=== PATIENT | female | born 1960 | race American Indian/Alaskan Native ===

== ENCOUNTER 2018-02-01 06:07 | Emergency (ER) | payer MEDICAID, OTHER ==
[2018-02-01 06:08] VITALS: BMI 19.3
--- NOTE | 2018-02-01 07:34 | C.PDOC ---
History Of Present Illness 57 years old -[place] female with history or schizoaffectidisorder and opioid use disorder, presents to ER requesting detox from heroin. She reports last use was 2 days ago. She is also asking for hot breakfast. Denies any alcohol use or physical complaints Time Seen by Provider: 02/01/18 07:05 Chief Complaint (Nursing): Substance Abuse History Per: Patient History/Exam Limitations: no limitations Past Medical History Reviewed: Historical Data, Nursing Documentation, Vital Signs Vital Signs: Last Vital Signs Temp 99.6 F 02/01/18 12:21 Pulse 114 H 02/01/18 12:21 Resp 18 02/01/18 12:21 BP 116/76 02/01/18 12:21 Pulse Ox 97 02/01/18 12:34 - Medical History PMH: Anxiety, Asthma, Bipolar Disorder, COPD (RECENTLY INTUBATED), Depression, Hepatitis (C), Schizophrenia - [facility] Procedures DETOXIFICATION SERVICES FOR SUBSTANCE ABUSE TREATMENT (05/01/16) GROUP PAINT ROLLER COVERMAKER FOR SUBSTANCE ABUSE TREATMENT, PSYCHOEDUCATION (05/01/16) INTRODUCE OF OTH THERAP SUBST INTO RESP TRACT, VIA OPENING (01/15/18) MEDICATION MANAGEMENT (01/15/18) PERCUTAN NEEDLE BX OF LIVER (07/03/14) Family History: States: No Known Family Hx - Social History Hx Tobacco Use: Yes Hx Alcohol Use: No Hx Substance Use: Yes - Immunization History Hx Tetanus Toxoid Vaccination: No Hx Influenza Vaccination: No Hx Pneumococcal Vaccination: No Review Of Systems Constitutional: Negative for: Fever Cardiovascular: Negative for: Chest Pain Gastrointestinal: Negative for: Vomiting Psych: Negative for: Suicidal ideation, Withdrawal Physical Exam - Physical Exam Appears: Non-toxic, No Acute Distress, Other (elderly appearing, thin habitus) Skin: Warm, Dry, No Rash Head: Normacephalic Eye(s): bilateral: PERRL Nose: Normal Neck: Normal ROM Extremity: Normal ROM, No Deformity, No Swelling Neurological/Psych: Oriented x3, Normal Speech ED Course And Treatment O2 Sat by Pulse Oximetry: 97 (RA) Pulse Ox Interpretation: Normal Medical Decision Making Medical Decision Making: Spoke with crisis and there are no beds available for detox Patient then was complaining her body hurts and still asking for food. Tylenol was given and patient fed. Patient is tachycardic. EKG shows Sinus Tach at 124 bpm. Case discussed with DR Keith. Recommends IV fluids and observation. Attempt another call to detox unit and still no beds available Patient given additional fluids and observed in ED for over 6 hours. She remained in no acute distress. She would ask for food and beverage. Patient ambulatory to rest room without any discomfort. No signs of hemodynamic instability. She is stable for discharge. Disposition Counseled Patient/Family Regarding: Diagnosis, Need For Followup - Disposition Disposition: HOME/ ROUTINE Disposition Time: 13:00 Condition: STABLE Additional Instructions: Please call [phone] or [phone] to inquire about our Detox availability , may speak to coordinator Mariana Instructions: Opioid Use Disorder Forms: [employer] (Belarusian) - POA Present On Arrival: None - Clinical Impression Clinical Impression: Schizoaffective disorder, Opioid use disorder, mild, abuse - Scribe Statement The provider has reviewed the documentation as recorded by the Scribe (Lauryn Galindo) All medical record entries made by the Scribe were at my direction and personally dictated by me. I have reviewed the chart and agree that the record accurately reflects my personal performance of the history, physical exam, medical decision making, and the department course for this patient. I have also personally directed, reviewed, and agree with the discharge instructions and disposition.
[2018-02-01 08:18] VITALS: RESP 18
[2018-02-01] MEDS ORDERED: Sodium Chloride 0.9% 1,000 ML IV ONE ×2 (09:09→11:23)
[2018-02-01] MEDS ORDERED: Sodium Chloride 0.9% 1,000 ML ONE (09:37)
[2018-02-01 12:22] VITALS: BP 116/76; PULSE 114; TEMP 99.6
[2018-02-01 12:34] VITALS: O2SAT 97
--- NOTE | 2018-02-02 15:27 | CARD ---
APPROVED REPORT EKG Measurement Heart [id number] <Conclusion> Sinus tachycardia Moderate voltage criteria for LVH, may be normal variant Borderline ECG
== END 2018-02-01 13:14 | disposition home or self-care (01) ==
LOC: C.ER 06:07
DX: F25.9 Schizoaffective disorder, unspecified (principal); F11.10 Opioid abuse, uncomplicated
CPT/HCPCS: 93005; 96360; 99284; J7040

== ENCOUNTER 2018-02-06 20:13 | Emergency (ER) | payer MEDICAID, OTHER ==
[2018-02-06 20:13] VITALS: BMI 19.3
--- NOTE | 2018-02-06 21:30 | C.PDOC ---
History Of Present Illness 57 y/o undomiciled female presents to the ED for EtOH intoxication. Patient brought herself into ED complaining of leg pain. She was seen at [facility] on 02/03/18 for substance abuse. PMD: none provided Time Seen by Provider: 02/06/18 21:24 Chief Complaint (Nursing): Lower Extremity Problem/Injury History Per: Patient History/Exam Limitations: intoxication Onset/Duration Of Symptoms: Hrs Current Symptoms Are (Timing): Still Present Modifying Factor(s): Alcohol Recent travel outside of the [place]: No Past Medical History Vital Signs: Last Vital Signs Temp 98.0 F 02/06/18 21:45 Pulse 88 02/06/18 21:45 Resp 14 02/06/18 21:45 BP 109/69 02/06/18 21:45 Pulse Ox 95 02/06/18 21:45 - Medical History PMH: Anxiety, Asthma, Bipolar Disorder, COPD (RECENTLY INTUBATED), Depression, Hepatitis (C), Schizophrenia Denies: Diabetes, HIV, HTN, Chronic Kidney Disease, Seizures, Sexually Transmitted Disease Surgical History: No Surg Hx - [facility] Procedures DETOXIFICATION SERVICES FOR SUBSTANCE ABUSE TREATMENT (05/01/16) GROUP CABLE TELEVISION INSTALLER FOR SUBSTANCE ABUSE TREATMENT, PSYCHOEDUCATION (05/01/16) INTRODUCE OF OTH THERAP SUBST INTO RESP TRACT, VIA OPENING (01/15/18) MEDICATION MANAGEMENT (01/15/18) PERCUTAN NEEDLE BX OF LIVER (07/03/14) Family History: States: Unknown Family Hx - Social History Hx Tobacco Use: Yes Hx Alcohol Use: No Hx Substance Use: Yes (heroin) - Immunization History Hx Tetanus Toxoid Vaccination: No Hx Influenza Vaccination: No Hx Pneumococcal Vaccination: No Review Of Systems Except As Marked, All Systems Reviewed And Found Negative. Constitutional: Positive for: Other (EtOH intoxication) Musculoskeletal: Positive for: Leg Pain Physical Exam - Physical Exam Appears: No Acute Distress, Other (argumentative) Skin: Normal Color, Warm, Dry Head: Atraumatic, Normacephalic Eye(s): bilateral: Other (pinpoint pupils) Nose: Normal Throat: Normal Neck: Normal Cardiovascular: Rhythm Regular, No Murmur Respiratory: Normal Breath Sounds, No Decreased Breath Sounds Gastrointestinal/Abdominal: Normal Exam Back: Normal Inspection, No CVA Tenderness, No Vertebral Tenderness Extremity: Normal ROM, Pedal Edema (mild bilateral lower extremity pedal edema) Neurological/Psych: Oriented x3 ED Course And Treatment O2 Sat by Pulse Oximetry: 97 (RA) Pulse Ox Interpretation: Normal Medical Decision Making Medical Decision Making: persistent polysubstance abuse earily arousable, argumentative, confrontational no acute issues similar presentation @ [facility] ED 3 days ago, tox+ cocaine, THC, opiates, suspect same Disposition Doctor Will See Patient In The: Office Counseled Patient/Family Regarding: Studies Performed, Diagnosis - Disposition Referrals: [facility] [Outside] [facility] [Outside] [facility] [Outside] [place] [email or web address] [Outside] Disposition: HOME/ ROUTINE Disposition Time: 21:29 Condition: GOOD Additional Instructions: continue to seek outpatient resources for your substance abuse and psych issues. Seek nightly [facility] placement. Instructions: Drug Abuse and Drug Addiction (DC), Drug Abuse Treatment, Opioid Use Disorder, Weaning Patients Off of Pain Drugs Forms: [facility] (Papua [place]inean) - Clinical Impression Clinical Impression: Polysubstance (including opioids) dependence with physiol dependence
[2018-02-06 21:49] VITALS: BP 109/69; PULSE 88; RESP 14; TEMP 98
[2018-02-06 22:48] VITALS: O2SAT 97
== END 2018-02-06 21:40 | disposition home or self-care (01) ==
LOC: C.ER 20:13
DX: F11.20 Opioid dependence, uncomplicated (principal)

== ENCOUNTER 2018-02-09 00:42 | Emergency (ER) | payer OTHER ==
[2018-02-09 00:42] VITALS: BMI 19.3
[2018-02-09 01:00] VITALS: BP 101/63; PULSE 101; RESP 20; TEMP 98.1; O2SAT 98
--- NOTE | 2018-02-09 01:19 | C.PDOC ---
History Of Present Illness 57 y/o female with a history of heroin abuse presents to the ED for request of detox. Patient admits to insufflating heroin today with no other complaints. PMD: none provided Time Seen by Provider: 02/09/18 01:08 Chief Complaint (Nursing): Substance Abuse History Per: Patient History/Exam Limitations: intoxication Onset/Duration Of Symptoms: Hrs Current Symptoms Are (Timing): Still Present Modifying Factor(s): Alcohol, Narcotics Recent travel outside of the [place]: No Past Medical History Reviewed: Historical Data, Nursing Documentation, Vital Signs Vital Signs: Last Vital Signs Temp 98.1 F 02/09/18 00:47 Pulse 101 H 02/09/18 00:47 Resp 20 02/09/18 00:47 BP 101/63 02/09/18 00:47 Pulse Ox 98 02/09/18 04:27 - Medical History PMH: Anxiety, Asthma, Bipolar Disorder, COPD (RECENTLY INTUBATED), Depression, Hepatitis (C), Schizophrenia Denies: Diabetes, HIV, HTN, Chronic Kidney Disease, Seizures, Sexually Transmitted Disease Surgical History: No Surg Hx - [facility] Procedures DETOXIFICATION SERVICES FOR SUBSTANCE ABUSE TREATMENT (05/01/16) GROUP CHECKER DUMP GROUNDS FOR SUBSTANCE ABUSE TREATMENT, PSYCHOEDUCATION (05/01/16) INTRODUCE OF OTH THERAP SUBST INTO RESP TRACT, VIA OPENING (01/15/18) MEDICATION MANAGEMENT (01/15/18) PERCUTAN NEEDLE BX OF LIVER (07/03/14) Family History: States: Unknown Family Hx - Social History Hx Tobacco Use: Yes Hx Alcohol Use: No Hx Substance Use: Yes (heroin) - Immunization History Hx Tetanus Toxoid Vaccination: No Hx Influenza Vaccination: No Hx Pneumococcal Vaccination: No Review Of Systems Except As Marked, All Systems Reviewed And Found Negative. Constitutional: Positive for: Other (EtOH intoxication and heroin usage, has no other complaints) Physical Exam - Physical Exam Appears: Well, No Acute Distress, Other (poor overall hygiene) Skin: Normal Color, Warm, Dry, Other (no peripheral stigmata of IV drug use) Head: Atraumatic Eye(s): bilateral: EOMI, Abnormal Pupil (pin point pupils) Nose: Normal Throat: Normal Neck: Normal, Supple Cardiovascular: Rhythm Regular (S1 & S2 normal), No Murmur Respiratory: Normal Breath Sounds (lungs are clear to auscultation bilaterally) Gastrointestinal/Abdominal: Normal Exam, Soft, No Tenderness Back: Normal Inspection, No CVA Tenderness, No Vertebral Tenderness, No Other ( no stenosis) Extremity: Normal ROM, No Other (no clubbing) Pulses: Left Radial: Normal (2+), Right Radial: Normal (2+) Neurological/Psych: Oriented x3, No No Response To Commands (responds to verbal stimuli), Other (appears to be under the influence of narcotics and lethargic, non-focal) ED Course And Treatment - Laboratory Results Result Diagrams: 02/09/18 02:05 02/09/18 02:05 O2 Sat by Pulse Oximetry: 98 (RA) Pulse Ox Interpretation: Normal Medical Decision Making Medical Decision Making: Impression: Substance and opioid abuse. Notify crisis of detox interest. Initial Plan: * Drug Screen * Urinalysis Alcohol was found to be 185. Scribe Attestation: Documented by Petros Guerra acting as a scribe Nima Osorio MD. Scribe Attestation: All medical record entries made by the Scribe were at my direction and personally dictated by me. I have reviewed the chart and agree that the record accurately reflects my personal performance of the history, physical exam, medical decision making, and the department course for this patient. I have also personally directed, reviewed, and agree with the discharge instructions and disposition. Disposition - Disposition Referrals: [facility] [Outside] Disposition: HOME/ ROUTINE Disposition Time: 08:41 Condition: GUARDED Additional Instructions: Pt given list of outpt programs.No female beds available for detox admission Instructions: Polysubstance Abuse Forms: [email or web address] (Indonesian) Print Language: PERSIAN - Clinical Impression Clinical Impression: Polysubstance abuse
[2018-02-09 02:24] LABS: ALB/GLOB RATIO 0.8 (1.0-2.1); ALBUMIN 3.4 g/dL (3.5-5.0); ALT/SGPT 106 U/L (9-52); AST/SGOT 153 U/L (14-36); BLOOD UREA NITROGEN 6 mg/dL (7-17); CALCIUM 9.1 mg/dl (8.6-10.4); GFR AFRICAN-AMERICAN > 60; GFR NON-AFRICAN AMERICAN > 60
[2018-02-09 02:27] LABS: BASO # 0.1 K/uL (0.0-0.2); BASO % 0.8 % (0.0-2.0); EOS # 0.3 K/uL (0.0-0.7); EOS % 3.3 % (0.0-4.0); HEMOGLOBIN 12.9 g/dL (11.0-16.0); LYMPH # 3.3 K/uL (1.0-4.3); MEAN CORPUSCULAR HEMOGLOBIN 31.3 pg (27.0-31.0); MEAN PLATELET VOLUME 8.3 fL (7.2-11.7); MONO # 0.8 K/uL (0.0-0.8); MONO % 9.6 % (0.0-10.0); NEUT # 4.3 K/uL (1.8-7.0); NEUT % 48.3 % (50.0-75.0); NRBC % 0.2 % (0.0-2.0); RBC 4.12 Mil/uL (3.80-5.20); RED CELL DISTRIBUTION WIDTH 15.2 % (11.5-14.5); WHITE BLOOD COUNT 8.8 K/uL (4.8-10.8)
== END 2018-02-09 09:36 | disposition home or self-care (01) ==
LOC: C.ER 00:42
DX: F19.10 Other psychoactive substance abuse, uncomplicated (principal)

== ENCOUNTER 2018-02-17 14:41 | Inpatient (IN) | payer MEDICAID, OTHER ==
[2018-02-17 14:41] VITALS: BMI 19.3
[2018-02-17 16:15] LABS: BASO % 0.5 % (0.0-2.0); EOS # 0.4 K/uL (0.0-0.7); EOS % 5.7 % (0.0-4.0); HEMOGLOBIN 13.3 g/dL (11.0-16.0); LYMPH # 3.8 K/uL (1.0-4.3); LYMPH % 50.7 % (20.0-40.0); MEAN CELL VOLUME 88.2 fL (81.0-99.0); MEAN CORPUSCULAR HEMOGLOBIN 31.2 pg (27.0-31.0); MEAN CORPUSCULAR HGB CONC 35.4 g/dL (33.0-37.0); MEAN PLATELET VOLUME 8.5 fL (7.2-11.7); MONO # 0.9 K/uL (0.0-0.8); MONO % 11.8 % (0.0-10.0); NEUT # 2.3 K/uL (1.8-7.0); NEUT % 31.3 % (50.0-75.0); NRBC % 0.1 % (0.0-2.0); RBC 4.25 Mil/uL (3.80-5.20); RED CELL DISTRIBUTION WIDTH 15.1 % (11.5-14.5); WHITE BLOOD COUNT 7.4 K/uL (4.8-10.8)
[2018-02-17 16:30] LABS: ALB/GLOB RATIO 0.6 (1.0-2.1); ALBUMIN 3.8 g/dL (3.5-5.0); ALT/SGPT 200 U/L (9-52); AST/SGOT 289 U/L (14-36); BLOOD UREA NITROGEN 14 mg/dL (7-17); CALCIUM 9.5 mg/dl (8.6-10.4); GFR AFRICAN-AMERICAN > 60; GFR NON-AFRICAN AMERICAN > 60
[2018-02-17 18:27] LABS: BARBITURATES, UR NEGATIVE (NEGATIVE); BENZODIAZEPINES, UR NEGATIVE (NEGATIVE); PHENCYCLIDINE, UR NEGATIVE (NEGATIVE)
--- NOTE | 2018-02-17 18:34 | C.PDOC ---
History Of Present Illness 57-year-old female, presents to the emergency department, prescreened for detox from Heroin. Patient states she last used Heroin IV this morning. Denies any other substance use. no SI/HI. Time Seen by Provider: 02/17/18 15:13 Chief Complaint (Nursing): Substance Abuse History Per: Patient Current Symptoms Are (Timing): Still Present Past Medical History Reviewed: Historical Data, Nursing Documentation, Vital Signs Vital Signs: Last Vital Signs Temp 98.7 F 02/17/18 18:15 Pulse 90 02/17/18 18:15 Resp 18 02/17/18 18:15 BP 118/75 02/17/18 18:15 Pulse Ox 97 02/17/18 18:38 - Medical History PMH: Anxiety, Asthma, Bipolar Disorder, COPD, Depression, Hepatitis (Hep C), Schizophrenia - [facility] Procedures DETOXIFICATION SERVICES FOR SUBSTANCE ABUSE TREATMENT (05/01/16) GROUP INJECTION MACHINE OPERATOR FOR SUBSTANCE ABUSE TREATMENT, PSYCHOEDUCATION (05/01/16) INTRODUCE OF OTH THERAP SUBST INTO RESP TRACT, VIA OPENING (01/15/18) MEDICATION MANAGEMENT (01/15/18) PERCUTAN NEEDLE BX OF LIVER (07/03/14) Family History: States: No Known Family Hx - Social History Hx Tobacco Use: Yes Hx Alcohol Use: No Hx Substance Use: Yes - Immunization History Hx Tetanus Toxoid Vaccination: No Hx Influenza Vaccination: No Hx Pneumococcal Vaccination: No Review Of Systems Except As Marked, All Systems Reviewed And Found Negative. Constitutional: Negative for: Fever, Chills Cardiovascular: Negative for: Chest Pain, Palpitations Respiratory: Negative for: Shortness of Breath Gastrointestinal: Negative for: Vomiting Skin: Negative for: Rash Neurological: Negative for: Weakness, Numbness, Headache, Dizziness Psych: Negative for: Suicidal ideation, Withdrawal Physical Exam - Physical Exam Appears: Non-toxic, No Acute Distress Skin: Normal Color, Warm, Dry, No Rash Head: Normacephalic Eye(s): bilateral: PERRL Nose: Normal Oral Mucosa: Moist Lips: Normal Appearing Neck: Normal ROM Chest: Symmetrical Cardiovascular: Rhythm Regular, No Murmur Respiratory: Normal Breath Sounds, No Accessory Muscle Use Gastrointestinal/Abdominal: Soft, No Tenderness Extremity: Normal ROM, No Deformity, No Swelling Neurological/Psych: Oriented x3, Normal Speech ED Course And Treatment - Laboratory Results Result Diagrams: 02/17/18 16:10 02/17/18 16:10 O2 Sat by Pulse Oximetry: 97 (RA) Pulse Ox Interpretation: Normal Progress Note: Patient medically cleared and stable for Detox. Patient has s/s of UTI and needs to continue Macrobid 100 mg po q 12 h for 5 days. Disposition - Disposition Disposition: HOSPITALIZED Disposition Time: 18:59 Condition: STABLE Forms: [facility] (Macedonian) - Clinical Impression Clinical Impression: Opiate dependence, UTI (urinary tract infection) - Scribe Statement The provider has reviewed the documentation as recorded by the Scribe (Lauryn Galindo) All medical record entries made by the Scribe were at my direction and personally dictated by me. I have reviewed the chart and agree that the record accurately reflects my personal performance of the history, physical exam, medical decision making, and the department course for this patient. I have also personally directed, reviewed, and agree with the discharge instructions and disposition.
[2018-02-17 18:36] LABS: SQUAMOUS EPITHIAL 2 /hpf (0-5); URINE BACTERIA MOD (<OCC); URINE BILIRUBIN NEGATIVE (NEGATIVE); URINE BLOOD 1+ (NEGATIVE); URINE CALCIUM OXALATE CRYSTALS FEW /hpf (<OCC); URINE CLARITY Hazy (Clear); URINE COLOR Amber (YELLOW); URINE GLUCOSE (UA) 2+ mg/dL (Normal); URINE LEUKOCYTE ESTERASE 3+ Leu/uL (Negative); URINE PROTEIN 1+ mg/dL (NEGATIVE)
[2018-02-17 18:50] LABS: OPIATES, UR POSITIVE (NEGATIVE)
--- NOTE | 2018-02-17 19:18 | PCM.BM ---
<Leeroy Piedra - Last Filed: 02/17/18 19:17> Treatment Plan Problems - Problems identified on initial assessmt potential for opiate withdrawal Date Initiated: 02/17/18 Time Initiated: 19:18 Status: Active Treatment assets and liabiliti Patient Assests: cooperative, ADL independent, negotiates basic needs, cognitively intact Patient Liabilities: substance abuse, medical problems - Milieu Protocol Maintain good personal hygiene: daily Encourage regular showers, daily Remind patient to perform daily oral care, daily Assist patient to perform ADL's Conduct patient checks and document Observation sheet: Q15 minutes Maintain personal safety: every shift Educate patient to report safety concerns to staff, every shift Monitor environment for contraband/sharps Medication safety: Monitor for expected outcome, potential side effects: every shift, Assess barriers to learning: every shift, Assess readiness for medication education: every shift <Oliva Treadwell - Last Filed: 02/20/18 10:15> - Diagnosis (1) Opiate dependence Status: Acute Interventions: 02/20/18 10:14 * Assess 7x/week regarding severity of withdrawal * Educate regarding risks, benefits, side effects and alternatives of medications * Use Motivational Interviewing for abstinence * Use CBT for relapse prevention * Medication management for withdrawal symptoms * Encourage medication assisted treatment *
[2018-02-17] MEDS ORDERED: Aluminum Hydroxide/Magnesium Hydroxide Susp (30 mL) PO PRN ×2 (19:31→19:38)
--- NOTE | 2018-02-18 13:11 | PCM.PSYCH ---
Initial Psychiatric Evaluation - Initial Psychiatric Evaluation Type of Admission: Voluntary Legal Status: Capacity Chief Complaint (in patient's own words): "I need detox" History of Present Illness and Precipitating Events: The patient is seen, chart reviewed and case discussed. This is a 57-year-old -Trist[place] female, single with 2 adult children, she is on disability because of schizoaffective disorder. The patient is here for heroin detox; using 20 bags IV since age 36. She denies all other drugs but she uses cigarettes 2 packs per day. She has been to detox 4 times in the past but no detox. She was on methadone 2 years ago up to 60 mg. Past psych history: She had been hospitalized for schizoaffective disorder for more than 10 times, last one was earlier this year in [place], however, she currently denies any psychiatric symptoms except for sleep problems. She is not suicidal, homicidal and no hallucinations or delusions elicited. Her mood is low a little bit but she attributes it to he drug use. Past medical history: Hepatitis C and asthma Family psych history: Her sister committed suicide. Current Medications: Active Medications Generic Name Dose Route Start Last Admin Trade Name Freq PRN Reason Stop Dose Admin Al Hydrox/Mg Hydrox/Simethicone 30 ml 02/17/18 19:31 Maalox 30 Ml PO TID PRN Indigestion / Heartburn Clonidine HCl 0.1 mg 02/17/18 19:31 Catapres PO Q8 PRN COWS Score More or Equal to 5 Hydroxyzine HCl 25 mg 02/17/18 19:31 Atarax PO Q6 PRN Agitation Loperamide HCl 2 mg 02/17/18 19:31 Imodium PO Q8 PRN Diarrhea Nicotine 1 patch 02/18/18 10:00 02/18/18 09:59 Nicoderm Cq TD 1 patch DAILY SHELLEY Administration Nitrofurantoin Macrocrystals 100 mg 02/18/18 10:00 02/18/18 10:09 Macrobid PO 100 mg Q12H SHELLEY Administration Protocol Ondansetron HCl 4 mg 02/17/18 19:38 Zofran Tab PO Q8 PRN Nausea/Vomiting Pseudoephedrine HCl 60 mg 02/17/18 19:31 Sudafed Tab PO QID PRN Nasal/Sinus Congestion Trazodone HCl 50 mg 02/17/18 22:00 02/17/18 21:18 Desyrel PO 50 mg HS SHELLEY Administration Past Psychiatric History - Past Psychiatric History Previous Treatment History: Inpatient Pertinent Medical Hx (Current Medical&Sleep Prob, Allergies): Allergies Allergy/AdvReac Type Severity Reaction Status Date / Time No Known Allergies Allergy Verified 02/17/18 15:14 No Known Home Med 02/17/18 Review of Systems - Psychiatric Psychiatric: Abnormal Sleep Pattern, Anxiety, Depression, Difficulty Concentrating, Irritability. absent: Hallucinations, Homicidal Ideation, Paranoia, Suicidal Ideation Mental Status Examination - Personal Presentation Personal Presentation: Looks older than stated age - Affect Affect: Constricted - Motor Activity Motor Activity: Calm - Reliability in Providing Information Reliability in Providing Information: Fair - Speech Speech: Organized - Mood Mood: Depressed, Anxious - Formal Thought Process Formal Thought Process: No Impairment - Cognitive Functions Orientation: Person, Place, Situation, Time Sensorium: Alert Attention/Concentration: Easily distracted Abstract Thinking: Lignum Estimate of Intelligence: Below average Judgement: Intact, as evidence by: Insight regarding need for hospitalization Memory: Recent intact, as evidence by: Ability to recall events of the day, Remote impaired as evidenced by: Inability to recall historical events - Risk Risk: Withdrawal, Diminished functioning - Strength & Assets Inventory Strength & Assets Inventory: Cooperative - Limitations Limitations: Other DSM 5 DX - DSM 5 DSM 5 Diagnosis: Opioid withdrawal Opioid use disorder, severe Tobacco use disorder, severe Schizoaffective disorder, depressed - Recommended/Plan of Treatment Treatment Recommendations and Plan of Treatment: Taper with methadone Seroquel for schizoaffective disorder and insomnia Gabapentin for augmentation if needed As needed medications All risks, benefits and alternatives of the meds discussed, and the pt agreed and understood. Attend groups and activities Supportive therapy and psychoeducation [place] for abstinence CBT for relapse prevention Encourage MAT Refer to rehab or IOP, and self-help groups Smoking cessation with [place] Nicotine patch 34 min Projected ELOS: 4-6 days Prognosis: Good with treatment - Smoking Cessation Smoking Cessation Initiated: Yes
[2018-02-18] MEDS ORDERED: Magnesium Hydroxide Susp 30 ml UD PO ONE (18:28)
[2018-02-18] MEDS ORDERED: Magnesium Hydroxide Susp 30 ml UD PO PRN (19:38)
--- NOTE | 2018-02-19 13:41 | PCM.PYCHPN ---
Psychiatric Progress Note - Psychiatric Progress Note Patient seen today, length of contact: 16 min Patient Chief Complaint: "I couldn't sleep well, still having some withdrawals" Problems Identified/Issues Discussed: The pt is seen, chart reviewed, case discussed with staff. Support given, CBT and [place] used briefly No new symptoms reported, improving slowly and needs more time No SEs from medications, risks discussed. After care discussed Medication Change: Yes (detox changes daily) Medical Record Reviewed: Yes Mental Status Examination - Cognitive Function Orientation: Person, Place, Situation, Time Memory: Impaired Attention: Poor Concentration: Poor Association: WNL Fund of Knowledge: Poor - Mood Mood: Depressed, Anxious - Affect Affect: Constricted - Speech Speech: Appropriate - Formal Thought Process Formal Thought Process: No Impairment - Suicidal Ideation Suicidal Ideation: No - Homicidal Ideation Homicidal Ideation: No Goal/Treatment Plan - Goal/Treatment Plan Need for Continued Stay: Discharge may exacerbated symptoms, Severe functional impairment Progress Toward Problem(s) and Goals/Treatment Plan: Taper with methadone Seroquel for schizoaffective disorder and insomnia Gabapentin for augmentation if needed As needed medications All risks, benefits and alternatives of the meds discussed, and the pt agreed and understood. Attend groups and activities Supportive therapy and psychoeducation [place] for abstinence CBT for relapse prevention Encourage MAT Refer to rehab or IOP, and self-help groups Smoking cessation with [place] Nicotine patch
--- NOTE | 2018-02-20 19:13 | PCM.PYCHPN ---
Psychiatric Progress Note - Psychiatric Progress Note Patient seen today, length of contact: 16 min Patient Chief Complaint: I'm fine Problems Identified/Issues Discussed: The pt is seen, chart reviewed, case discussed with staff. The pt is compliant with medications and reports no side-effects. Symptoms are improving but needs more time to stabilize. After care discussed, support and psychoeducation given. DSM 5 Symptoms Update: Opioid withdrawal Opioid use disorder, severe Tobacco use disorder, severe Schizoaffective disorder, depressed Medication Change: Yes (detox changes daily) Medical Record Reviewed: Yes Mental Status Examination - Cognitive Function Orientation: Person, Place, Situation, Time Memory: Impaired Attention: Poor Concentration: Poor Association: WNL Fund of Knowledge: Poor Decription of patient's judgement and insights: fair/fair Addtional comments: Cooperative - Mood Mood: Depressed, Anxious - Affect Affect: Constricted - Speech Speech: Appropriate - Formal Thought Process Formal Thought Process: No Impairment Psychotic Thoughts and Behaviors: denied - Suicidal Ideation Suicidal Ideation: No Plan: denied - Homicidal Ideation Homicidal Ideation: No Plan: denied Goal/Treatment Plan - Goal/Treatment Plan Need for Continued Stay: Discharge may exacerbated symptoms, Severe functional impairment Progress Toward Problem(s) and Goals/Treatment Plan: Methadone detox Gabapentin for augmentation As needed meds and vitamins Attend groups and activities [place] for abstinence and CBT for relapse prevention Support and psychoeducation Estimated Date of D/C: 02/22/18
--- NOTE | 2018-02-21 10:10 | RAD ---
HISTORY: Discharge instructions COMPARISON: Comparison is made with 07/03/2014 TECHNIQUE: Chest PA and lateral FINDINGS: LUNGS: No evidence of new infiltrate or consolidation in the lungs. [id number] hyperinflation of the lungs is again noted. There is linear opacity seen at the right lung base likely represent atelectasis. PLEURA: No significant pleural effusion identified. No pneumothorax apparent. CARDIOVASCULAR: Normal. OSSEOUS STRUCTURES: No significant abnormalities. VISUALIZED UPPER ABDOMEN: Normal. OTHER FINDINGS: None. IMPRESSION: Small linear opacity at the right lung base may represent atelectasis. Otherwise no significant interval change.
--- NOTE | 2018-02-21 16:24 | PCM.PYCHPN ---
Psychiatric Progress Note - Psychiatric Progress Note Patient seen today, length of contact: 16 min Patient Chief Complaint: I'm getting better Problems Identified/Issues Discussed: The pt is seen, chart reviewed, case discussed with staff.Pt stated that she is getting better with the meds. The pt is compliant with medications and reports no side-effects. Symptoms are improving but needs more time to stabilize. After care discussed, support and psychoeducation given. DSM 5 Symptoms Update: Opioid dependence, severe Opioid withdrawal Medication Change: Yes (detox changes daily) Medical Record Reviewed: Yes Mental Status Examination - Cognitive Function Orientation: Person, Place, Situation, Time Memory: Impaired Attention: Poor Concentration: Poor Association: WNL Fund of Knowledge: Poor Decription of patient's judgement and insights: fair/fair Addtional comments: Cooperative - Mood Mood: Depressed, Anxious - Affect Affect: Constricted - Speech Speech: Appropriate - Formal Thought Process Formal Thought Process: No Impairment Psychotic Thoughts and Behaviors: denied - Suicidal Ideation Suicidal Ideation: No Plan: denied - Homicidal Ideation Homicidal Ideation: No Plan: denied Goal/Treatment Plan - Goal/Treatment Plan Need for Continued Stay: Discharge may exacerbated symptoms, Severe functional impairment Progress Toward Problem(s) and Goals/Treatment Plan: Methadone detox Gabapentin for augmentation As needed meds and vitamins Attend groups and activities MA for abstinence and CBT for relapse prevention Support and psychoeducation Estimated Date of D/C: 02/23/18 - Smoking Cessation Smoking Cessation Initiated: No
[2018-02-21] MEDS: Vitamins A & D Oint UD Foilpak TOP PRN (18:35)
[2018-02-22 06:16] VITALS: RESP 18
[2018-02-22] MEDS: Vitamins A & D Oint UD Foilpak TOP PRN (10:02)
[2018-02-22 10:35] VITALS: BP 113/67; PULSE 76; TEMP 97.7; O2SAT 98
--- NOTE | 2018-02-22 11:39 | PCM.PYCHDC ---
Mental Status Examination - Mental Status Examination Orientation: Person, Place, Situation, Time Memory: Intact Mood: Anxious Affect: Constricted Speech: Appropriate Attention: WNL Concentration: Poor Association: WNL Fund of Knowledge: Poor Formal Thought Process: No Impairment Suicidal Ideation: No Current Homicidal Ideation?: No Discharge Summary - Discharge Note Reason for Hospitalization: Opioid detox Consultations:: List each consultation separately and include: 1. Reason for request. 2. Findings. 3. Follow-up Summary of Hospital Course include:: 1. Description of specific treatment plan utilized for patients during their course of treatmen. 2. Summarize the time- course for resolution of acute symptoms and/or regressed behaviors. 3. Describe issues identified and worked on during hospitalization. 4. Describe medication utilized. 5. Describe medical problems identified and treated. 6. Reassessment of suicide risk Summary of Hospital Course: The patient is seen, chart reviewed and case discussed. On admission: This is a 57-year-old -Wel[place] female, single with 2 adult children, she is on disability because of schizoaffective disorder. The patient is here for heroin detox; using 20 bags IV since age 36. She denies all other drugs but she uses cigarettes 2 packs per day. She has been to detox 4 times in the past but no detox. She was on methadone 2 years ago up to 60 mg. Past psych history: She had been hospitalized for schizoaffective disorder for more than 10 times, last one was earlier this year in [place], however, she currently denies any psychiatric symptoms except for sleep problems. She is not suicidal, homicidal and no hallucinations or delusions elicited. Her mood is low a little bit but she attributes it to he drug use. Past medical history: Hepatitis C and asthma Family psych history: Her sister committed suicide. Hospital course: The pt was admitted and started on treatment with psychotherapy, support, psychoeducation and medications. OH and CBT used. The pt attended groups and activities, as well as milieu therapy. All the risks and benefits of medications are discussed and the patient understood and agreed. The pt improved with the treatments provided. She was however very inappropriate and disruptive many times and could have been administratively discharged at times. After care discussed with the patient. She is not accepted by rehabs and will now go to [facility] in [facility], where [facility] [place] [facility]. She did not want meds but trazodone. - Final Diagnosis (DSM 5) Condition upon Discharge: STABLE DSM 5: Opioid withdrawal Opioid use disorder, severe Tobacco use disorder, severe Schizoaffective disorder, depressed Disposition: HOME/ ROUTINE Follow-up Treatment Plan: Continue below medications after discharge. Follow after care plan as discussed. Use relapse prevention skills Return to ER or call 911 if suicidal, homicidal or symptoms relapse. Stay away from stress, alcohol and drugs. See primary doctor regularly and get labs. Prescriptions/Medication Reconciliation: Nitrofurantoin Macrocrystals [Macrobid] 100 mg PO Q12H #8 cap traZODone [Desyrel] 50 mg PO HS #30 tab - Smoking Cessation Smoking Cessation Medication prescribed: No - Antipsychotic Medications Pt discharged on 2 or more routine antipsychotic medications: No
== END 2018-02-22 12:45 | disposition home or self-care (01) | DRG 744 ==
LOC: C.ER 14:41 → C.7D 19:03
PROVIDERS: ADMIT Psychiatry & Neurology Psychiatry; ATTEND Psychiatry & Neurology Psychiatry
PROC: HZ2ZZZZ Detoxification Services for Substance Abuse Treatment (ICD-10-PCS; principal; 2018-02-17)
PROC: HZ56ZZZ Individual Psychotherapy for Substance Abuse Treatment, Psychoeducation (ICD-10-PCS; 2018-02-17)
PROC: GZ3ZZZZ Medication Management (ICD-10-PCS; 2018-02-17)
PROC: HZ90ZZZ Pharmacotherapy for Substance Abuse Treatment, Nicotine Replacement (ICD-10-PCS; 2018-02-17)
PROC: GZHZZZZ Group Psychotherapy (ICD-10-PCS; 2018-02-17)
PROC: HZ46ZZZ Group Counseling for Substance Abuse Treatment, Psychoeducation (ICD-10-PCS; 2018-02-17)
PROC: GZ56ZZZ Individual Psychotherapy, Supportive (ICD-10-PCS; 2018-02-17)
DX: F11.23 Opioid dependence with withdrawal (principal); F25.1 Schizoaffective disorder, depressive type; N39.0 Urinary tract infection, site not specified; J44.9 Chronic obstructive pulmonary disease, unspecified; B18.2 Chronic viral hepatitis C; F17.210 Nicotine dependence, cigarettes, uncomplicated; F31.9 Bipolar disorder, unspecified; G47.00 Insomnia, unspecified

== ENCOUNTER 2018-06-27 11:28 | Inpatient (IN) | payer MEDICAID, OTHER ==
[2018-06-27 11:28] VITALS: BMI 19.3
--- NOTE | 2018-06-27 12:27 | C.PDOC ---
History Of Present Illness 58 year old female, with history of depression, presents to the emergency department for psychiatric evaluation. Patient states she wants to kill herself by overdosing on sleeping pills. Suicidal ideation started after she stopped taking her medications 2 months ago. Otherwise she denies any homicidal ideation , hallucinations, or hearing any voices. Time Seen by Provider: 06/27/18 11:59 Chief Complaint (Nursing): Psychiatric Evaluation History Per: Patient History/Exam Limitations: no limitations Onset/Duration Of Symptoms: Days Current Symptoms Are (Timing): Still Present Past Medical History Reviewed: Historical Data, Nursing Documentation, Vital Signs Vital Signs: Last Vital Signs Temp 98.6 F 06/27/18 11:46 Pulse 78 06/27/18 11:46 Resp 19 06/27/18 11:46 BP 111/77 06/27/18 11:46 Pulse Ox 99 06/27/18 13:51 - Medical History PMH: Anxiety, Asthma, COPD, Depression, Hepatitis (Hep C), Schizophrenia Denies: Bipolar Disorder, Diabetes, HIV, HTN, Chronic Kidney Disease, Seizures, Sexually Transmitted Disease - [facility] Procedures DETOXIFICATION SERVICES FOR SUBSTANCE ABUSE TREATMENT (02/17/18) GROUP IRRIGATION ENGINEER FOR SUBSTANCE ABUSE TREATMENT, PSYCHOEDUCATION (02/17/18) GROUP PSYCHOTHERAPY (02/17/18) INDIV PSYCHOTHERAPY FOR SUBSTANCE ABUSE, PSYCHOEDUCATION (02/17/18) INDIVIDUAL PSYCHOTHERAPY, SUPPORTIVE (02/17/18) INTRODUCE OF OTH THERAP SUBST INTO RESP TRACT, VIA OPENING (01/15/18) MEDICATION MANAGEMENT (02/17/18) PERCUTAN NEEDLE BX OF LIVER (07/03/14) PHARMACOTHERAPY FOR SUBSTANCE ABUSE, NICOTINE REPLACE (02/17/18) Family History: States: No Known Family Hx - Social History Hx Tobacco Use: Yes Hx Alcohol Use: No Hx Substance Use: Yes (LAST USE YESTERDAY) - Immunization History Hx Tetanus Toxoid Vaccination: No Hx Influenza Vaccination: No Hx Pneumococcal Vaccination: No Review Of Systems Except As Marked, All Systems Reviewed And Found Negative. Constitutional: Negative for: Fever, Chills Cardiovascular: Negative for: Chest Pain Respiratory: Negative for: Shortness of Breath Gastrointestinal: Negative for: Nausea, Vomiting Psych: Positive for: Depression, Suicidal ideation. Negative for: Other ( Homicidal ideation) Physical Exam - Physical Exam Appears: Non-toxic, No Acute Distress Skin: Normal Color, Warm, Dry Head: Atraumatic, Normacephalic Eye(s): bilateral: Normal Inspection Oral Mucosa: Moist Neck: Normal Neurological/Psych: Oriented x3, Normal Speech Gait: Steady ED Course And Treatment - Laboratory Results Result Diagrams: 06/27/18 12:32 06/27/18 12:32 Lab Interpretation: Abnormal (elevated lft, abnormal UA) O2 Sat by Pulse Oximetry: 99 (RA) Pulse Ox Interpretation: Normal Medical Decision Making Medical Decision Making: Impression: Psychiatric Evaluation Plan: -Labs -Urinalysis -Cipro 500 mg PO Elevated LFTs noted. UTI in the ua noted. Case discussed with Dr. Keith and patient is medically cleared for psychiatric evaluation. If admitted, will need internal medicine consult on the floor. Disposition Counseled Patient/Family Regarding: Studies Performed, Diagnosis - Disposition Disposition: HOSPITALIZED Disposition Time: 13:47 Condition: STABLE Forms: [facility] (Maldivian) - Clinical Impression Clinical Impression: UTI (urinary tract infection), Depression, Elevated LFTs - PA / [employer]MENT SALES ENGINEER / Resident Statement MD/DO has reviewed & agrees with the documentation as recorded. - Scribe Statement The provider has reviewed the documentation as recorded by the Scribe Gina Field All medical record entries made by the Scribe were at my direction and personally dictated by me. I have reviewed the chart and agree that the record accurately reflects my personal performance of the history, physical exam, medical decision making, and the department course for this patient. I have also personally directed, reviewed, and agree with the discharge instructions and disposition. Decision To Admit - Pt Status Changed To: Hospital Disposition Of: Inpatient - Admit Certification Admit to Inpatient:: After my assessment, the patient will require hospitalization for at least two midnights. This is because of the severity of symptoms shown, intensity of services needed, and/or the medical risk in this patient being treated as an outpatient. - InPatient: Physician Admission Certification: I certify that this patient requires 2 or more midnights of care for the following reason:: Pt is admitted for major depression with suicidal ideations, uti, elevated lfts - . Bed Request Type: Psychiatry Admitting Physician: Oliva Treadwell Patient Diagnosis: UTI (urinary tract infection), Depression, Elevated LFTs
[2018-06-27 12:47] LABS: BASO # 0.1 K/uL (0.0-0.2); BASO % 1.4 % (0.0-2.0); EOS # 0.3 K/uL (0.0-0.7); EOS % 6.1 % (0.0-4.0); HEMOGLOBIN 13.9 g/dL (11.0-16.0); LYMPH # 2.6 K/uL (1.0-4.3); LYMPH % 55.2 % (20.0-40.0); MEAN CORPUSCULAR HEMOGLOBIN 30.4 pg (27.0-31.0); MEAN CORPUSCULAR HGB CONC 35.3 g/dL (33.0-37.0); MEAN PLATELET VOLUME 8.6 fL (7.2-11.7); MONO # 0.5 K/uL (0.0-0.8); NEUT # 1.2 K/uL (1.8-7.0); NEUT % 26.3 % (50.0-75.0); NRBC % 0.4 % (0.0-2.0); RBC 4.57 Mil/uL (3.80-5.20); RED CELL DISTRIBUTION WIDTH 14.3 % (11.5-14.5); WHITE BLOOD COUNT 4.7 K/uL (4.8-10.8)
[2018-06-27 12:48] LABS: SQUAMOUS EPITHIAL 6 /hpf (0-5); URINE BACTERIA FEW (<OCC); URINE BILIRUBIN NEGATIVE (NEGATIVE); URINE BLOOD 1+ (NEGATIVE); URINE CLARITY Hazy (Clear); URINE COLOR Yellow (YELLOW); URINE GLUCOSE (UA) NORMAL (Normal); URINE LEUKOCYTE ESTERASE 3+ Leu/uL (Negative); URINE PROTEIN NEGATIVE (NEGATIVE); WBC CLUMPS FEW /hpf
[2018-06-27 12:50] LABS: MEAN CELL VOLUME 86.1 fL (81.0-99.0)
[2018-06-27 12:58] LABS: BARBITURATES, UR NEGATIVE (NEGATIVE); BENZODIAZEPINES, UR NEGATIVE (NEGATIVE); PHENCYCLIDINE, UR NEGATIVE (NEGATIVE)
[2018-06-27 12:59] LABS: OPIATES, UR POSITIVE (NEGATIVE)
[2018-06-27 13:00] LABS: ALB/GLOB RATIO 0.7 (1.0-2.1); ALT/SGPT 94 U/L (9-52); AST/SGOT 122 U/L (14-36); BLOOD UREA NITROGEN 9 mg/dL (7-17); CALCIUM 9.5 mg/dl (8.6-10.4); GFR NON-AFRICAN AMERICAN > 60
[2018-06-27 13:01] LABS: ACETAMINOPHEN < 10.0 ug/mL (10.0-30.0); SALICYLATE < 1.0 mg/dL 1
--- NOTE | 2018-06-27 14:22 | PCM.BM ---
<Briana Cartercy - Last Filed: 06/27/18 14:20> Treatment Plan Problems - Problems identified on initial assessmt Problem 1 Date Initiated: 06/27/18 Time Initiated: 14:21 Assessment reference: NA Status: Active Treatment assets and liabiliti Patient Assests: cooperative, ADL independent, negotiates basic needs, cognitively intact Patient Liabilities: live alone, financial problems, poor support system, substance abuse - Milieu Protocol Maintain good personal hygiene: daily Encourage regular showers, daily Remind patient to perform daily oral care, daily Assist patient to perform ADL's Conduct patient checks and document Observation sheet: Q15 minutes Maintain personal safety: every shift Educate patient to report safety concerns to staff, every shift Monitor environment for contraband/sharps Medication safety: Monitor for expected outcome, potential side effects: every shift, Assess barriers to learning: every shift, Assess readiness for medication education: every shift <Sylvia Petty - Last Filed: 06/28/18 11:33> Family Contact Family involvement: Famliy/SO not involved - Goals for Treatment Patient goals for treatment: "I need help." Discharge/Continuing Care - Education Needs Education Needs: Patient Medication, Patient Coping Skills, Patient Placement options, Patient Community resources - Discharge Discharge Criteria: Tolerates medication w/o severe side effects, Reduction of target symptoms Discharge to:: Substance Abuse Rehab - Treatment Team Participation Discussed with Family/SO: No Was Patient/Family/SO present at Treatment Team Meeting: Yes
[2018-06-27] MEDS ORDERED: Albuterol HFA 90 mcg/actuation (8 g) INH PRN (18:22)
[2018-06-27] MEDS ORDERED: Aluminum Hydroxide/Magnesium Hydroxide Susp (30 mL) PO PRN (18:29)
--- NOTE | 2018-06-28 13:37 | PCM.PSYCH ---
Initial Psychiatric Evaluation - Initial Psychiatric Evaluation Type of Admission: Voluntary Legal Status: Capacity History of Present Illness and Precipitating Events: This is a 58-year-old female, single with two adult children, who is on disability and lives on her own. The patient is here for suicidal ideation. She reports feeling depressed and anxious with panic attacks. She has contemplated suicide recently and even hoarded some pills, now she feels better and has no intention or plan here on the unit. Also, she has been using 10 bags heroin on IV since age 36. She reports smoking cigarettes 4 packs per day but denies any other drug use. She tried heroin detoxmultiple times in the past but no detox. Patient states that she attempted committing suicide a couple of years ago. Patient reports that she is interested in involving a long-time treatment program and gettingpsych education. Past psych history:She had been hospitalized for schizoaffective disorder for more than 10 times. She denies any hallucinations or delusions. Past medical History: Hepatitis C and asthma. Family psych history:Her sister committed suicide. There is no substance use history or psychiatric disorders in her parents. Current Medications: Active Medications Generic Name Dose Route Start Last Admin Trade Name Freq PRN Reason Stop Dose Admin Albuterol 1 puff 06/27/18 18:22 Ventolin Hfa 90 Mcg/Actuation (8 G) INH RQ4 PRN SOB Ciprofloxacin 500 mg 06/27/18 22:00 06/28/18 09:55 Cipro PO 07/03/18 22:01 500 mg Q12H SHELLEY Administration Protocol Clonidine HCl 0.1 mg 06/27/18 18:29 06/27/18 19:03 Catapres PO 0.1 mg Q8 PRN Administration COWS Score More or Equal to 5 Hydroxyzine HCl 25 mg 06/27/18 18:32 06/27/18 21:17 Atarax PO 25 mg Q4H PRN Administration Anxiety Ibuprofen 400 mg 06/27/18 18:32 Motrin Tab PO Q6H PRN Pain, moderate (4-7) Loperamide HCl 2 mg 06/27/18 18:49 Imodium PO Q8 PRN Diarrhea Methadone HCl 15 mg 06/28/18 10:00 06/28/18 09:56 Methadone PO 07/02/18 09:59 15 mg Q24H SHELLEY Administration Taper Mirtazapine 15 mg 06/27/18 22:00 06/27/18 21:17 Remeron PO 15 mg HS SHELLEY Administration Ondansetron HCl 4 mg 06/27/18 18:29 Zofran Tab PO Q8 PRN Nausea/Vomiting Past Psychiatric History - Past Psychiatric History Previous Treatment History: Inpatient Pertinent Medical Hx (Current Medical&Sleep Prob, Allergies): Allergies Allergy/AdvReac Type Severity Reaction Status Date / Time No Known Allergies Allergy Verified 02/17/18 15:14 No Known Home Med 06/27/18 Review of Systems - Neurological Neurological: UNREMARKABLE - Psychiatric Psychiatric: Abnormal Sleep Pattern, Anhedonia, Anxiety, Behavioral Changes, Difficulty Concentrating, Irritability, Mood Swings, Panic Attacks, Paranoia. absent: Homicidal Ideation, Suicidal Ideation Mental Status Examination - Personal Presentation Personal Presentation: Looks older than stated age - Affect Affect: Blunted - Motor Activity Motor Activity: Psychomotor Agitation (at times) - Reliability in Providing Information Reliability in Providing Information: Poor, due to altered mood - Speech Speech: Organized (somewhat) - Mood Mood: Depressed, Anxious - Formal Thought Process Formal Thought Process: Paranoia - Cognitive Functions Orientation: Person, Place, Situation, Time Sensorium: Alert Attention/Concentration: Easily distracted Abstract Thinking: [place] Estimate of Intelligence: Below average Judgement: Imparied, as evidence by: Poor judgement (no ) Memory: Recent intact, as evidence by: Ability to recall events of the day, Remote impaired as evidenced by: Inability to recall sig life events - Risk Risk: Withdrawal, Diminished functioning - Strength & Assets Inventory Strength & Assets Inventory: Cooperative - Limitations Limitations: Living alone DSM 5 DX - DSM 5 DSM 5 Diagnosis: Schizoaffective disorder - depressed Opioid withdrawal opioid use d/o severe - Recommended/Plan of Treatment Treatment Recommendations and Plan of Treatment: Zyprexa for mood swings, irritability and paranoia remeron for depression, consider SSRI too Methadone taper Prn medications All risks, benefits and alternatives of medications, including no medications, discussed and the patient understood and agreed. Attend groups and activities Individual therapy Psychoeducation and support Encourage compliance with meds and after care Refer to outpatient program or rehab Teach healthy lifestyle methods, i.e. diet, exercise, meditation Smoking cessation 32 min Projected ELOS: 4-5 days - Smoking Cessation Smoking Cessation Initiated: Yes
--- NOTE | 2018-06-29 12:24 | PCM.PYCHPN ---
Psychiatric Progress Note - Psychiatric Progress Note Patient seen today, length of contact: 15 min Patient Chief Complaint: I am feeling depressed.' Problems Identified/Issues Discussed: Patient seen and evaluated, chart reviewed and discussed with the nurse. Pt reports depressed mood, and reports feelings of hopelessness and helplessness. Pt remained disorganized and internally preoccupied. She remained isolated and withdrawn, and confined to his room. Patient reports of withdrawal symptoms including abdominal cramps, anxiety, headaches and sweating. Patient is compliant with medications and denies any side effects. Symptoms are improving but pt needs more time to stabilize. Support and psychoeducation given. Medication Change: Yes Medical Record Reviewed: Yes Mental Status Examination - Cognitive Function Orientation: Person, Place, Situation, Time Memory: Intact Attention: Poor Concentration: Poor Association: Loose Fund of Knowledge: Poor - Mood Mood: Anxious - Affect Affect: Constricted - Speech Speech: Soft - Formal Thought Process Formal Thought Process: Delusions, Paranoia, Loosening of associations - Suicidal Ideation Suicidal Ideation: No - Homicidal Ideation Homicidal Ideation: No Goal/Treatment Plan - Goal/Treatment Plan Need for Continued Stay: Severe depression anxiety, Severe functional impairment Progress Toward Problem(s) and Goals/Treatment Plan: Schizoaffective disorder - depressed Opioid withdrawal opioid use d/o severe Zyprexa for mood swings, irritability and paranoia remeron for depression, consider SSRI too Methadone taper Prn medications All risks, benefits and alternatives of medications, including no medications, discussed and the patient understood and agreed. Attend groups and activities Individual therapy Psychoeducation and support Encourage compliance with meds and after care Refer to outpatient program or rehab Teach healthy lifestyle methods, i.e. diet, exercise, meditation Smoking cessation
--- NOTE | 2018-06-30 11:55 | PCM.PYCHPN ---
Psychiatric Progress Note - Psychiatric Progress Note Patient seen today, length of contact: 16 min Patient Chief Complaint: "I need to go to a rehab" Problems Identified/Issues Discussed: The pt is seen, chart reviewed, case discussed with staff. The pt is compliant with medications and reports no side-effects. Symptoms are improving but needs more time to stabilize. She is calmer now Pt attends groups and activities. Support given, psycho-education provided. After care discussed. She is interested in rehab Medication Change: Yes (increase remeron) Medical Record Reviewed: Yes Mental Status Examination - Cognitive Function Orientation: Person, Place, Situation, Time Memory: Intact Attention: Poor Concentration: Poor Association: Loose Fund of Knowledge: Poor - Mood Mood: Anxious - Affect Affect: Constricted - Speech Speech: Soft - Formal Thought Process Formal Thought Process: Paranoia - Suicidal Ideation Suicidal Ideation: No - Homicidal Ideation Homicidal Ideation: No Goal/Treatment Plan - Goal/Treatment Plan Need for Continued Stay: Severe depression anxiety, Discharge may exacerbated symptoms, Severe functional impairment Progress Toward Problem(s) and Goals/Treatment Plan: Zyprexa for mood swings, irritability and paranoia remeron for depression, consider SSRI too Methadone taper Prn medications All risks, benefits and alternatives of medications, including no medications, discussed and the patient understood and agreed. Attend groups and activities Individual therapy Psychoeducation and support Encourage compliance with meds and after care Refer to outpatient program or rehab Teach healthy lifestyle methods, i.e. diet, exercise, meditation Smoking cessation
--- NOTE | 2018-07-01 11:43 | PCM.PYCHPN ---
Psychiatric Progress Note - Psychiatric Progress Note Patient seen today, length of contact: 16 min Patient Chief Complaint: "I am not well" Problems Identified/Issues Discussed: The pt is seen, chart reviewed, case discussed with staff. Support given, CBT and TN used briefly No new symptoms reported, improving slowly and needs more time She got agitated again and had to be medicated She has some ongoing opioid wdw sxs, additional methadone arranged but she is also explained that it will stop - she agreed She is likely too disorganized and impulsive to tolerate rehab, but we will monitor No SEs from medications, risks discussed. After care discussed Medication Change: Yes (methadone) Medical Record Reviewed: Yes Mental Status Examination - Cognitive Function Orientation: Person, Place, Situation, Time Memory: Intact Attention: Poor Concentration: Poor Association: Loose Fund of Knowledge: Poor - Mood Mood: Anxious - Affect Affect: Constricted - Speech Speech: Soft - Formal Thought Process Formal Thought Process: Paranoia - Suicidal Ideation Suicidal Ideation: No - Homicidal Ideation Homicidal Ideation: No Goal/Treatment Plan - Goal/Treatment Plan Need for Continued Stay: Severe depression anxiety, Discharge may exacerbated symptoms, Severe functional impairment Progress Toward Problem(s) and Goals/Treatment Plan: Zyprexa for mood swings, irritability and paranoia remeron for depression, consider SSRI too Methadone taper Prn medications All risks, benefits and alternatives of medications, including no medications, discussed and the patient understood and agreed. Attend groups and activities Individual therapy Psychoeducation and support Encourage compliance with meds and after care Refer to outpatient program or rehab Teach healthy lifestyle methods, i.e. diet, exercise, meditation Smoking cessation
--- NOTE | 2018-07-02 14:13 | PCM.PYCHPN ---
Psychiatric Progress Note - Psychiatric Progress Note Patient seen today, length of contact: 16 min Patient Chief Complaint: "I am tired, still withdrawing" Problems Identified/Issues Discussed: The pt is seen, chart reviewed, case discussed with staff. The pt is compliant with medications and reports no side-effects. Symptoms are improving but needs more time to stabilize. Somewhat calmer compared to yesterday After care discussed, support and psychoeducation given. Medication Change: Yes (detox ending) Medical Record Reviewed: Yes Mental Status Examination - Cognitive Function Orientation: Person, Place, Situation, Time Memory: Intact Attention: Poor Concentration: Poor Association: Loose Fund of Knowledge: Poor - Mood Mood: Anxious - Affect Affect: Constricted - Speech Speech: Soft - Formal Thought Process Formal Thought Process: Paranoia - Suicidal Ideation Suicidal Ideation: No - Homicidal Ideation Homicidal Ideation: No Goal/Treatment Plan - Goal/Treatment Plan Need for Continued Stay: Severe depression anxiety, Discharge may exacerbated symptoms, Severe functional impairment Progress Toward Problem(s) and Goals/Treatment Plan: Zyprexa for mood swings, irritability and paranoia remeron for depression, consider SSRI too Methadone taper Prn medications All risks, benefits and alternatives of medications, including no medications, discussed and the patient understood and agreed. Attend groups and activities Individual therapy Psychoeducation and support Encourage compliance with meds and after care Refer to outpatient program or rehab Teach healthy lifestyle methods, i.e. diet, exercise, meditation Smoking cessation
[2018-07-02] MEDS: Hydrocortisone 1% Cream (30 GM) TOP SCH (17:57)
[2018-07-03] MEDS: Hydrocortisone 1% Cream (30 GM) TOP SCH ×2 (09:08→17:26)
[2018-07-03 10:28] VITALS: RESP 20
[2018-07-04] MEDS ORDERED: Magnesium Hydroxide Susp 30 ml UD PO ONE (00:25)
[2018-07-04] MEDS: Hydrocortisone 1% Cream (30 GM) TOP SCH ×2 (09:30→18:06)
--- NOTE | 2018-07-04 21:24 | PCM.PYCHPN ---
Psychiatric Progress Note - Psychiatric Progress Note Patient seen today, length of contact: 15 minutes Patient Chief Complaint: I'm feeling better but my sleep is still less. Problems Identified/Issues Discussed: Patient seen, chart reviewed, case discussed with the staff. Issues related to illness and treatment were discussed with the patient and staff. Reported compliant with treatment with no adverse affects. Tolerating treatment very well. Patient reported feeling little better with the treatment. But her sleep is still less. Education provided. Calm and cooperative. Awake, alert and oriented 3. No psychomotor activity, good eye contact, memory intact. Aftercare discussed with the patient. Denied any delusions, auditory or visual hallucinations, suicidal ideations or homicidal ideations at the time of evaluation. Medical Problems: Hepatitis C Asthma Diagnostic Results: Reviewed DSM 5 Symptoms Update: Some improvement with treatment Medication Change: Yes (Started ciprofloxacin 500 mg twice a day for UTI) Medical Record Reviewed: Yes Mental Status Examination - Cognitive Function Orientation: Person, Place, Situation, Time Memory: Intact Attention: WNL Concentration: WNL Association: WN Fund of Knowledge: [facility] Decription of patient's judgement and insights: Fair - Mood Mood: Anxious - Affect Affect: Other (Appropriate) - Speech Speech: Appropriate, Soft - Formal Thought Process Formal Thought Process: No Impairment Psychotic Thoughts and Behaviors: None - Suicidal Ideation Suicidal Ideation: No - Homicidal Ideation Homicidal Ideation: No Goal/Treatment Plan - Goal/Treatment Plan Need for Continued Stay: Remain at risks for inpatient hospitalization, Discharge may exacerbated symptoms, Severe functional impairment Progress Toward Problem(s) and Goals/Treatment Plan: Patient education. Supportive therapy. We'll start ciprofloxacin 500 mg twice a day for 5 days for UTI. Continue rest of the treatment as before. Estimated Date of D/C: 07/05/18 - Smoking Cessation Smoking Cessation Initiated: Yes
[2018-07-05 06:02] VITALS: BP 109/74; PULSE 98; TEMP 97.7; O2SAT 97
[2018-07-05] MEDS: Hydrocortisone 1% Cream (30 GM) TOP SCH (09:54)
--- NOTE | 2018-07-05 11:00 | PCM.PYCHDC ---
Mental Status Examination - Mental Status Examination Orientation: Person, Place, Situation, Time Memory: Intact Mood: Anxious Affect: Constricted Speech: Appropriate Attention: WNL Concentration: WNL Association: WNL Fund of Knowledge: WNL Formal Thought Process: No Impairment Suicidal Ideation: No Current Homicidal Ideation?: No Discharge Summary - Discharge Note Reason for Hospitalization: Feeling suicidal and heroin detox Consultations:: List each consultation separately and include: 1. Reason for request. 2. Findings. 3. Follow-up Summary of Hospital Course include:: 1. Description of specific treatment plan utilized for patients during their course of treatmen. 2. Summarize the time- course for resolution of acute symptoms and/or regressed behaviors. 3. Describe issues identified and worked on during hospitalization. 4. Describe medication utilized. 5. Describe medical problems identified and treated. 6. Reassessment of suicide risk Summary of Hospital Course: On Admission: This is a 58-year-old female, single with two adult children, who is on disability and lives on her own. The patient is here for suicidal ideation. She reports feeling depressed and anxious with panic attacks. She has contemplated suicide recently and even hoarded some pills, now she feels better and has no intention or plan here on the unit. Also, she has been using 10 bags heroin on IV since age 36. She reports smoking cigarettes 4 packs per day but denies any other drug use. She tried heroin detoxmultiple times in the past but no detox. Patient states that she attempted committing suicide a couple of years ago. Patient reports that she is interested in involving a long-time treatment program and gettingpsych education. Past psych history:She had been hospitalized for schizoaffective disorder for more than 10 times. She denies any hallucinations or delusions. Past medical History: Hepatitis C and asthma. Family psych history:Her sister committed suicide. There is no substance use history or psychiatric disorders in her parents. Hospital course: The pt was admitted and started on treatment with psychotherapy, support, psychoeducation and medications. OK and CBT used. The pt attended groups and activities, as well as milieu therapy. All the risks and benefits of medications are discussed and the patient understood and agreed. The pt improved with the treatments provided. After care discussed with the patient. She was referred to [facility] but it did not happen. She is then referred to [facility] but she was not interested and likely will not go. Risks discussed. - Final Diagnosis (DSM 5) Condition upon Discharge: STABLE DSM 5: Schizoaffective disorder - depressed Opioid withdrawal opioid use d/o severe Disposition: HOME/ ROUTINE Follow-up Treatment Plan: Continue below medications after discharge. Follow after care plan as discussed. Use relapse prevention skills Return to ER or call 911 if suicidal, homicidal or symptoms relapse. Stay away from stress, alcohol and drugs. See primary doctor regularly and get labs. Prescriptions/Medication Reconciliation: Albuterol HFA [Ventolin HFA 90 mcg/actuation (8 g)] 1 puff INH RQ4 PRN #1 inhaler PRN Reason: SOB Mirtazapine [Remeron] 30 mg PO HS #30 tab OLANZapine [Zyprexa] 10 mg PO QPM #30 tab
== END 2018-07-05 11:15 | disposition home or self-care (01) | DRG 773 ==
LOC: C.ER 11:28 → C.5E 13:42
PROVIDERS: ADMIT Psychiatry & Neurology Psychiatry; ATTEND Psychiatry & Neurology Psychiatry
PROC: GZHZZZZ Group Psychotherapy (ICD-10-PCS; principal; 2018-06-27)
PROC: GZ56ZZZ Individual Psychotherapy, Supportive (ICD-10-PCS; 2018-06-27)
DX: F11.23 Opioid dependence with withdrawal (principal); R45.851 Suicidal ideations; K75.9 Inflammatory liver disease, unspecified; N39.0 Urinary tract infection, site not specified; F25.9 Schizoaffective disorder, unspecified; B19.20 Unspecified viral hepatitis C without hepatic coma; J44.9 Chronic obstructive pulmonary disease, unspecified; F32.9 Major depressive disorder, single episode, unspecified; F41.0 Panic disorder [episodic paroxysmal anxiety]; F17.210 Nicotine dependence, cigarettes, uncomplicated